=== PATIENT | male | born 1950 | race Hispanic/Latino ===

== ENCOUNTER 2017-03-29 09:45 | Day surgery (SDC) | payer MEDICARE ==
[~2017-03-29] VITALS: Ht 154.9 cm; Wt 84.0 kg
[~2017-03-29 09:45] MED LIST: CAR8A PO; CHOL200020 PO; CLOB15CR3 TOP; DESO15OI TOP; GARL400T5 PO; Lactated Ringer's 1,000 ML IV ONE; TAMS0.4C98 PO; TEST100V4 IM
[2017-03-29] MEDS ORDERED: fentaNYL-PF 50 mCg/mL 2 mL Inj ONE (09:46)
[2017-03-29] MEDS ORDERED: Propofol 10 mg/mL 20 mL Inj ONE (09:46)
[2017-03-29 10:39] VITALS: BP 121/70; PULSE 80; RESP 16; O2SAT 94
[2017-03-29] MEDS ORDERED: CHOL10008 PO (10:42)
[2017-03-29] MEDS ORDERED: METF500T4 PO (10:42)
[2017-03-29] MEDS ORDERED: GARL500C PO (10:42)
[2017-03-29 11:32] VITALS: BP 113/67; PULSE 67; RESP 16; O2SAT 94
[2017-03-29 11:42] VITALS: BP 122/69; PULSE 69; RESP 16; O2SAT 96
[2017-03-29 11:52] VITALS: BP 126/70; PULSE 70; RESP 16; O2SAT 96
--- NOTE | 2017-03-29 12:28 | ENDO ---
[address] [address] ENDOSCOPY PROCEDURE PATIENT: JOHN CHRISTIAN : 1950 MR#: [id number] ADMIT: 03/29/2017 JOB ID: [id number] PROCEDURE: Esophagogastroduodenoscopy. INDICATION: Patient with a history of Duenas's esophagus. The patient's ASA classification, Mallampati score and medications as per anesthesia note. INSTRUMENT USED: GIF H 180 J PROCEDURE DETAILS: After informed consent was obtained, the patient was brought to the GI suite, where he was placed on oxygen via nasal cannula and monitored with continuous pulse oximeter, telemetry and blood pressure monitoring. A time-out was performed. Then, he was placed in the left lateral decubitus position and medications were administered for sedation. A bite block was placed. The standard EGD scope was inserted and bite block and advanced under direct visualization to second portion of duodenum without difficulty. FINDINGS: 1. Normal appearing duodenal bulb, first and second portion. 2. Normal appearing pylorus. In the antrum and body of the stomach, the mucosa had an erythematous edematous appearance suggestive of gastritis. Multiple random biopsies were obtained. 3. Retroflexed views in the gastric body revealed a normal appearing cardia and fundus. 4. The GE junction was at approximately 38 cm which coincided with the top of the gastric folds. There was a salmon colored mucosa extending up to 36 cm, two short tongues. Multiple biopsies were obtained. The remainder of the esophagus was otherwise unremarkable. IMPRESSION: 1. Gastritis. 2. C0 M2 suspected Duenas's esophagus. RECOMMENDATIONS: 1. Await biopsy results. 2. Continue PPI daily. 3. Reflux precautions. 4. Encourage weight loss. COMPLICATIONS: None. ESTIMATED BLOOD LOSS: Less than 5 mL.
--- NOTE | 2017-03-29 12:48 | PCM.HPANE ---
Patient Data Surgeon Admitting Provider: Attending Provider:Shruthi Odonnell MD Primary Care Physician:Nikki Dyer MD Other Provider:Yvette Bautista Anesthesia Reason for Visit Barretts Esophagus W/O Dysplasia Ht/WT & BMI Body Mass Index Allergies Coded Allergies: No Known Drug Allergies (Verified Allergy, Unknown, 03/29/17) Past Anesthesia History Anesthesia History: Denies:: Abnormal Airway, Anesthesia Reactions, Difficult Intubation, Fam Anesthesia Reaction, Fam Malignant Hypertherm, Malignant Hyperthermia Diabetes History Hx Diabetes?: No MRSA MRSA: No Medications Reported Medications Garlic 500 Mg [id number] Mg PO DAILY 03/29/17 Cholecalciferol (Vitamin D3) (Vitamin D3)1,000 Unit Tab.chew1,000 Unit PO DAILY 03/29/17 Metformin 500 Mg [id number] Mg PO BID Ref 0 03/29/17 Doxazosin (Cardura)8 Mg Tablet8 Mg PO HS Ref 0 03/28/17 Tamsulosin (Flomax)0.4 Mg Capsule0.4 Mg PO DAILY 30 Days Ref 0 12/10/14 Discontinued Reported Medications Testosterone Cypionate 100 Mg/1 Ml Vial3 Ml IM 02/01/15 Cholecalciferol (Vitamin D3) (Vitamin D-3)2,000 Unit Capsule1,000 Unit PO DAILY 12/10/14 Testosterone Cypionate 100 Mg/1 Ml [id number] Mg IM 12/10/14 Garlic 400 Mg [id number] Mg PO DAILY 12/10/14 Desonide (Desonide Ointment)N Oint...g.1 Applic TOP BID #1 TUBE Ref 0 12/10/14 Clobetasol Propionate/Emoll (Clobetasol Emollient 0.05% Crm)15 Gm Cream..g.1 Appl TOP BID #1 TUBE 12/10/14 History History of ENT Problems?: No HEENT History: Denies:: Abnormal Airway Difficult Intubation Dysphagia Hearing Problem Denture Type: None Teeth Condition: Within Normal Limits Hx of Heart Problems?: No Cardiovascular History: Denies:: AICD Atrial Fibrillation Chest Pain Hypertension Pacemaker Valvular Heart Disease Hx of Respiratory Problem?: No Respiratory History: Denies:: Asthma COPD Cough Hemoptysis Pneumonia Tuberculosis Hx Neurologic Problems?: No Neurological History: Denies:: CVA Hx of GI Problems?: Yes Hx of Problems?: No Hx Musculoskeletal Problems?: No Musculoskeletal History: Denies:: Joint Replacement Psycho Social History: Denies:: Anxiety Hx Depression Hx Surgeries?: No Hx Any Other Health Problems?: Yes Hx Diabetes: No Hx Alcohol Use: Yes Smoking Status: Current Some Day Smoker Stop/Bang Risk Assessment Category Category 1A: Patient has history of documented sleep apnea, and HAS NOT received any narcotic, sedative or anesthesia administration during this stay. Category 1B: Patient has history of documented sleep apnea, and HAS received any narcotic , sedative or anesthesia administration during this stay Category 2: Patient has SUSPECTED Obstructive Sleep Apnea, and HAS received any narcotic , sedative or anesthesia administration during this stay. Category 3: Patient has SUSPECTED Obstructive Sleep Apnea and HAS NOT received narcotic, sedative or anesthesia administration during this stay. Category 4: Outpatient in Procedural Areas with known sleep apnea or who screen positive for High Risk via the STOP/BANG questionnaire. Exam Exam General Appearance: Alert, Oriented X3, Cooperative, No Acute Distress HEENT/AIRWAY: MP 2 Lungs: Clear to Auscultation Heart: Exam Unremarkable Plan Impression Patient chart reviewed, patient interviewed and anesthestic plan with risks, benefits, and alternatives discussed, and informed consent obtained. ASA Physical Status: ASA2 Mod Systemic Disease Anesthetic Plan: MAC Bene/Risks/Altern/Consents: Yes HP Complete Prior to Induction: Yes Lizandro Lea MD Mar 29, 2017 09:29
--- NOTE | 2017-04-03 15:03 | PATH ---
SURGICAL PATHOLOGY Attending Physician:Gabriela Aleman CASE STATUS: Signed Out PATIENT NAME: OJHN CHRISTIAN PID: [id number] : 1950 DATE COLLECTED:03/29/2017 22:15 SPECIMEN: 1: Gastric, Biopsy 2: Esophagus, Biopsy CLINICAL HISTORY: 1). RANDOM GASTRIC, RULE OUT H.PYLORI 2). DISTAL ESOPHAGUS BIOPSY FINAL DIAGNOSIS: 1.GASTRIC BIOPSY: GASTRIC CORPUS AND ANTRUM WITH MILD CHRONIC ACTIVE GASTRITIS. Negative for Helicobacter organisms. Negative for intestinal metaplasia. No evidence of dysplasia or malignancy. 2.DISTAL ESOPHAGUS, BIOPSY: ESOPHAGEAL SQUAMOUS EPITHELIUM AND GASTRIC GLANDULAR MUCOSA WITH MILD CHRONIC ACTIVE INFLAMMATION. Negative for intestinal metaplasia. No evidence of dysplasia or malignancy. ICD10 K29.70 GROSS DESCRIPTION: Received are two formalin-filled containers, each labeled with the patient's name. 1. Received in formalin, labeled with the patient's name and "random gastric" are four fragments of martin soft tissue ranging in size from 0.1 x 0.1 x 0.1 cm to 0.2 x 0.1 x 0.1 cm. All fragments are totally submitted in cassette 1A. 2. Received in formalin, labeled with the patient's name and "distal esophagus" are two fragments of martin soft tissue ranging in size from 0.2 x 0.1 x 0.1 cm to 0.2 x 0.2 x 0.1 cm. All fragments are totally submitted in cassette 2A. ([id number]) MICRO DESCRIPTION: 1. The lamina propria of the gastric corpus and antrum is expanded by moderate numbers of acute and chronic inflammatory cells. An immunostain for Helicobacter organisms is done because of the acute inflammation and is negative. This test was developed and its performance characteristics determined by [employer]. It has not been cleared or approved by the [place]. Food and Drug Administration. The FDA has determined that such clearance or approval is not necessary. This test is used for clinical purposes. It should not be regarded as investigational or for research. ICD-9 CODES: CPT CODES: 1: 73891, 28720 2: 04571 Electronically Signed Out Arcenio Adrian MD [facility] [address] [place] [address], [place] [address] Technical component performed at [facility], [address], [place], [address]
== END 2017-03-29 23:59 | disposition home or self-care (01) ==
LOC: END 09:45
PROVIDERS: ATTEND Internal Medicine Gastroenterology
DX: K29.50 Unspecified chronic gastritis without bleeding (principal); K21.9 Gastro-esophageal reflux disease without esophagitis; K22.70 Barrett's esophagus without dysplasia; F17.210 Nicotine dependence, cigarettes, uncomplicated
CPT/HCPCS: 43239; J3010; J7120